=== PATIENT | male | born 1965 | race American Indian/Alaskan Native ===

== ENCOUNTER 2017-12-11 16:26 | Emergency (ER) | payer SELFPAY ==
[2017-12-11 17:09] LABS: Basophils % (Auto) 0.9 % (0.0-1.8); Eosinophils # (Auto) 0.1 K/mm3 (0.0-0.4); Hematocrit 45.1 % (35.5-45.6); Hemoglobin 15.1 gm/dl (11.8-15.2); Lymphocytes # (Auto) 1.9 K/mm3 (1.2-5.4); Lymphocytes % (Auto) 45.1 % (13.4-35.0); Mean Corpuscular HGB Conc 34 % (32-34); Mean Corpuscular Hemoglobin 30 pg (28-32); Mean Corpuscular Volume 89 fl (84-94); Monocytes # (Auto) 0.4 K/mm3 (0.0-0.8); Monocytes % (Auto) 9.1 % (0.0-7.3); Platelet Count 254 K/mm3 (140-440); Red Blood Count 5.05 M/mm3 (3.65-5.03); Red Cell Distribution Width 14.9 % (13.2-15.2)
[2017-12-11 17:29] LABS: BUN/Creatinine Ratio 10; Blood Urea Nitrogen 8 mg/dL (9-20); Calcium 8.6 mg/dL (8.4-10.2); Hemolysis Index 5
--- NOTE | 2017-12-11 18:29 | Emergency Department Report ---
HPI - General Chief Complaint: Psych Time Seen by Provider: 12/11/17 17:53 - [facility] HPI: [facility] The patient is a 52-year-old male presenting with a chief complaint of suicidal ideation. The patient has a history of bipolar disorder has been off his medication for several months. The patient states he has had suicidal ideation for "a couple of weeks." Patient denies any plan or actual attempts at harming himself. The patient complains of auditory hallucinations telling him things such as "hurt yourself." Location: Mental state Duration: "A couple of weeks" Quality: Suicidal Severity: Severe Modifying factors: [see above] Context: [see above] Mode of transportation: [not driving] ED Past Medical Hx - Past Medical History Hx Psychiatric Treatment: Yes (bipolar) - Surgical History Past Surgical History?: No - Family History Family history: no significant - Social History Smoking Status: Current Every Day Smoker (1 pack per day) Substance Use Type: Alcohol (3-4 beers daily), Cocaine ED Review of Systems ROS: Stated complaint: SUICIDAL/BIPOLAR Other details as noted in HPI Constitutional: denies: no symptoms reported Eyes: denies: eye pain ENT: denies: throat pain Cardiovascular: denies: chest pain Gastrointestinal: denies: abdominal pain Genitourinary: denies: dysuria Musculoskeletal: back pain Neurological: denies: headache Psychiatric: suicidal thoughts Physical Exam - Physical Exam Vital Signs: Vital Signs 12/11/17 16:30 Temperature 97.9 F Pulse Rate 90 Respiratory 18 Rate Blood Pressure 138/88 O2 Sat by Pulse 98 Oximetry Physical Exam: GENERAL: The patient is well-developed well-nourished male lying on stretcher and standing in room not appearing to be in acute distress. [] HEENT: Normocephalic. Atraumatic. Extraocular motions are intact. Patient has moist mucous membranes. NECK: Supple. Trachea midline CHEST/LUNGS: Clear to auscultation. There is no respiratory distress noted. HEART/CARDIOVASCULAR: Regular. There is no tachycardia. There is no gallop rub or murmur. ABDOMEN: Abdomen is soft, nontender. Patient has normal bowel sounds. There is no abdominal distention. SKIN: There is no rash. There is no edema. There is no diaphoresis. NEURO: The patient is awake, alert, and oriented. The patient is cooperative. The patient has normal speech and gait MUSCULOSKELETAL: There is no evidence of acute injury. ED Course Vital Signs 12/11/17 16:30 Temperature 97.9 F Pulse Rate 90 Respiratory 18 Rate Blood Pressure 138/88 O2 Sat by Pulse 98 Oximetry ED Medical Decision Making - Lab Data Result diagrams: 12/11/17 17:02 12/11/17 17:02 - Differential Diagnosis suicidal ideation, alcoholism Critical care attestation.: If time is entered above; I have spent that time in minutes in the direct care of this critically ill patient, excluding procedure time. ED Disposition Clinical Impression: Suicidal ideation, Alcohol intoxication Disposition: [id number]/TX-65 PSY HOSP/PSY UNIT Is pt being admited?: No Does the pt Need Aspirin: No Condition: Serious Time of Disposition: 18:29 (awaiting acceptance)
[2017-12-11] MEDS ORDERED: VITAMIN B-1 100 MG, FOLVITE 1 MG, INFUVITE 10 ML, MAGNESIUM SULFATE 2 GM in NACL 0.9% 1... IV ONE (19:00)
[2017-12-11 19:56] LABS: Bilirubin,Urine NEG (Negative); Blood,Urine NEG (Negative); Color,Urine Yellow (Yellow); Mucus,Urine FEW /HPF; Protein,Urine <15 mg/dL mg/dL (Negative); Urobilinogen,Urine < 2.0 mg/dL (<2.0); WBC,Urine < 1.0 /HPF (0.0-6.0)
[2017-12-11 20:04] LABS: Amphetamine Screen,Urine PRESUMPTIVE NEGATIVE; Benzodiazepines Screen,Urine PRESUMPTIVE NEGATIVE; Cannabinoid Screen,Urine PRESUMPTIVE NEGATIVE; Cocaine Screen,Urine PRESUMPTIVE NEGATIVE; Methadone Screen,Urine PRESUMPTIVE NEGATIVE; Opiate Screen,Urine PRESUMPTIVE NEGATIVE
--- NOTE | 2017-12-12 13:00 | Consultation ---
History of Present Illness - Reason for Consult Consult date: 12/12/17 Reason for consult: Mental Health Evaluation Requesting physician: LANA GONZALEZ - Chief Complaint Chief complaint: "I want to hurt myself" - History of Present Psychiatric Illness 52-year-old AA male presenting with a chief complaint of SI's. Today the patient is calm, but vague during the assessment. He stated being depressed and hearing voices telling him to harm himself. He would not elaborate more when asking him questions about the voices. Also, he was vague about his alcoholism. He did state drinking (etoh) for 20 plus years. He is adamant that he just want to hurt himself (injury). He denies SI/HI's and VH's. Medications and Allergies Allergies Allergy/AdvReac Type Severity Reaction Status Date / Time No Known Allergies Allergy Unverified 12/11/17 16:29 Home Medications Medication Instructions Recorded Confirmed Last Taken Type Unobtainable 12/11/17 12/11/17 Unknown History Past psychiatric history - Past Medical History Past Medical History: No medical history Past Surgical History: No surgical history - past Psychiatric treatment and history psychiatric treatment history: Hx of Bipolar DO and took Latuda in the past. Denies a fam psy hx. - Social History Social history: lives with family Mental Status Exam - Vital signs Last Vital Signs Temp 97.9 F 12/12/17 08:08 Pulse 60 12/12/17 08:08 Resp 16 12/12/17 08:08 BP 137/76 12/12/17 08:08 Pulse Ox 96 12/12/17 08:08 - Exam Narrative exam: MSE: Appearance: calm, but vague Behavior: regular eye contact Speech: regular rate and tone Mood: "depressed" Affect: congruent to mood Thought Process: circumstantial Thought Content: denies SI/HI's and AVH's Motor Activity: lying in bed Cognition: A/O x 3 Insight: variable Judgment: variable Results Result Diagrams: 12/11/17 17:02 12/11/17 17:02 Abnormal lab results 12/11/17 12/11/17 12/11/17 Range/Units 17:02 17:02 17:02 WBC (4.5-11.0) K/mm3 RBC (3.65-5.03) M/mm3 Lymph % (Auto) (13.4-35.0) % [place] % (Auto) (0.0-7.3) % Seg Neutrophils # (1.8-7.7) K/mm3 BUN 8 L (9-20) mg/dL Salicylates < 0.3 L (2.8-20.0) mg/dL Acetaminophen < 5.0 L (10.0-30.0) ug/mL Plasma/Serum Alcohol (0-0.07) % 12/11/17 12/11/17 Range/Units 17:02 17:02 WBC 4.1 L (4.5-11.0) K/mm3 RBC 5.05 H (3.65-5.03) M/mm3 Lymph % (Auto) 45.1 H (13.4-35.0) % [place] % (Auto) 9.1 H (0.0-7.3) % Seg Neutrophils # 1.7 L (1.8-7.7) K/mm3 BUN (9-20) mg/dL Salicylates (2.8-20.0) mg/dL Acetaminophen (10.0-30.0) ug/mL Plasma/Serum Alcohol 0.21 H (0-0.07) % All other labs normal. Assessment and Plan Assessment and plan: Impression: Unspecified Mood DO with psy features. Alcohol Use DO. Today the patient is calm, but vague during the assessment. DDx: R/O Alcohol Induced Mood DO Recommendation/Plan: Continue 1013 with placement to inpatient psy services. Start Seroquel 200 mg PO HS for psychosis/mood. Discussed possible metabolic side effects of Seroquel with patient.
--- NOTE | 2017-12-13 13:20 | Progress Note ---
Subjective - Reason for Consult Consult date: 12/13/17 Reason for consult: Psychiatry Follow-up - Chief Complaint Chief complaint: "I don't feel better" 52-year-old AA male presenting with a chief complaint of SI's. Today the patient is calm during the assessment. He stated that he does not want to hurt himself, but still experiencing depression. He rate his depression 6/10, with 10 being the worse. He stated that his life is "all messed up." He denies SI/HI' s and VH's. He stated that the voices are still active, but he cannot make out what they are saying. Mental Status Exam - Vital signs Last Vital Signs Temp 98 F 12/13/17 07:35 Pulse 55 L 12/13/17 07:35 Resp 18 12/13/17 07:35 BP 110/74 12/13/17 07:35 Pulse Ox 98 12/13/17 07:35 - Exam Narrative exam: MSE: Appearance: calm Behavior: poor eye contact Speech: regular rate and tone Mood: "depressed" withdrawn Affect: congruent to mood Thought Process: circumstantial Thought Content: denies SI/HI's and VH's Motor Activity: lying in bed Cognition: A/O x 3 Insight: variable Judgment: variable Assessment and Plan Impression: Unspecified Mood DO with psy features. Alcohol Use DO. Today the patient is calm during the assessment. DDx: R/O Alcohol Induced Mood DO Recommendation/Plan: Continue 1013 with placement to inpatient psy services. Continue Seroquel 200 mg PO HS for psychosis/mood. Discussed possible metabolic side effects of Seroquel with patient.
[2017-12-14] MEDS ORDERED: ATIVAN IV PRN ×3 (06:27)
--- NOTE | 2017-12-14 14:11 | Progress Note ---
Subjective - Reason for Consult Consult date: 12/14/17 Reason for consult: Psychiatric Follow-up Evaluation - Chief Complaint Chief complaint: "" Patient is a 52-year-old male who presents with a chief complaint of suicidal ideations. Today the patient is calm during the assessment. He rates his depression 6/10, with 10 being the worse. He stated that his life is "all messed up." He denies SI/HI's and VH's. He stated that the voices are still active, but he cannot make out what they are saying. Mental Status Exam - Vital signs Last Vital Signs Temp 97.6 F 12/14/17 09:34 Pulse 70 12/14/17 09:34 Resp 18 12/14/17 09:34 BP 128/74 12/14/17 09:34 Pulse Ox 97 12/14/17 09:34 - Exam Narrative exam: Mental Status Exam: Appearance: calm Behavior: poor eye contact Speech: regular rate and tone Mood: "depressed" withdrawn Affect: congruent to mood Thought Process: circumstantial Thought Content: denies SI/HI's and VH's Motor Activity: lying in bed Cognition: A/O x 3 Insight: variable Judgment: variable Assessment and Plan Impression: Unspecified Mood DO with psy features. Alcohol Use DO. Today the patient is calm during the assessment. DDx: R/O Alcohol Induced Mood DO Recommendation/Plan: 1. Continue 1013 with placement to inpatient psychiatric services. 2. Continue Seroquel 200 mg PO HS for psychosis/mood. Discussed possible metabolic side effects of Seroquel with patient. 3. Will monitor mood, sleep, appetite, compliance, side effects, and withdrawal symptoms.
--- NOTE | 2017-12-15 13:13 | Progress Note ---
Subjective - Reason for Consult Consult date: 12/15/17 Reason for consult: Psychiatry Follow-up - Chief Complaint Chief complaint: "I feel better" Patient is a 52-year-old male who presents with a chief complaint of suicidal ideations. Today the patient is calm and cooperative during the assessment. He denies hearing voices when asked. He stated that he would like a referral for outpatient psy services if discharged from the ER. He denies SI/HI's and AVH's. He denies any side effects of his medication. Mental Status Exam - Vital signs Last Vital Signs Temp 98.3 F 12/15/17 10:00 Pulse 80 12/15/17 10:00 Resp 20 12/15/17 10:00 BP 126/72 12/15/17 10:00 Pulse Ox 98 12/15/17 10:00 - Exam Narrative exam: MSE: Appearance: calm, cooperative Behavior: regular eye eye contact Speech: regular rate and tone Mood: "better" Affect: congruent to mood Thought Process: circumstantial Thought Content: denies SI/HI's and AVH's Motor Activity: lying in bed Cognition: A/O x 3 Insight: fair Judgment: fair Assessment and Plan Impression: Unspecified Mood DO with psy features. Alcohol Use DO. Today the patient is calm and cooperative during the assessment. DDx: R/O Alcohol Induced Mood DO Recommendation/Plan: Evaluate 1013 in 24 hours to determine proper dispo. Continue Seroquel 200 mg PO HS for psychosis/mood. Discussed possible metabolic side effects of Seroquel with patient.
[2017-12-16 05:52] VITALS: BP 132/83
--- NOTE | 2017-12-16 12:50 | Progress Note ---
Subjective - Reason for Consult Consult date: 12/16/17 Reason for consult: Psychiatry Follow-up - Chief Complaint Chief complaint: "I will do better" Patient is a 52-year-old male who presents with a chief complaint of suicidal ideations. Today the patient is calm and cooperative during the assessment. He stated feeling better "mentally" and look forward to getting his life together. He denies SI/HI's and AVH's. He denies side effects of his medication. Mental Status Exam - Vital signs Last Vital Signs Temp 98.2 F 12/16/17 00:30 Pulse 64 12/16/17 00:30 Resp 18 12/16/17 00:30 BP 132/83 12/16/17 00:30 Pulse Ox 97 12/16/17 00:30 - Exam Narrative exam: MSE: Appearance: calm, cooperative Behavior: regular eye eye contact Speech: regular rate and tone Mood: "okay" Affect: congruent to mood Thought Process: logical Thought Content: denies SI/HI's and AVH's Motor Activity: lying in bed Cognition: A/O x 3 Insight: appropriate Judgment: appropriate Assessment and Plan Impression: Unspecified Mood DO with psy features. Alcohol Use DO. Today the patient is calm and cooperative during the assessment. DDx: R/O Alcohol Induced Mood DO Recommendation/Plan: Rescind 1013. Continue Seroquel 200 mg PO HS for psychosis/ mood. Discussed possible metabolic side effects of Seroquel with patient. The patient can follow up with [facility] for outpatient psy/rehab services.
--- NOTE | 2017-12-16 17:25 | Emergency Department Report ---
Blank Doc - Documentation Documentation: Patient 52-year-old male that presents emergency room with suicidal ideations and was placed on a 1013. However patient has been cleared by mental health and is stable for discharge from a psychological and medical standpoint. 1013 has been rescinded by mental health. Patient to be discharged home. Patient to be given resources at the time of discharge. Patient instructed to return to the ER if his condition worsens or returns. Patient to follow up with his primary care and 3-5 days. Patient to follow up with psychiatry in 3 days. Patient take all meds as directed.
== END 2017-12-16 18:48 ==
LOC: EEVIPCON 16:26 → ED 16:26
DX: F10.129 Alcohol abuse with intoxication, unspecified (principal); F31.9 Bipolar disorder, unspecified; F39 Unspecified mood [affective] disorder; R45.851 Suicidal ideations; F17.200 Nicotine dependence, unspecified, uncomplicated
CPT/HCPCS: 36415; 80048; 80307; 81001; 85025; 96365; 96366; 99285; G0480; J3411; J3475; J7030; 80320